=== PATIENT | female | born 1960 | race Caucasian/White ===

== ENCOUNTER 2024-09-10 09:47 | Outpatient (AMB) | payer BC, SELFPAY ==
--- NOTE | 2024-09-10 10:27 | MHC.PC.OV ---
Vital Signs 09/10/24 10:42 Height 5 ft 2 in Weight 169 lb 4 oz BMI 31.0 BP 130/70 Blood Pressure Location Rt brachial Position Sitting Respiration 14 Pulse 72 Pulse Source Pulse Oximeter Temp 98.0 F Temp Source Oral Pulse Oximetry (%) 97 Oxygen Delivery Method Room Air Intake Visit Reasons: Annual PE Allergies amoxicillin Allergy (Severe, Verified 09/10/24 10:42) Anaphylaxis tramadol Allergy (Severe, Verified 09/10/24 10:42) Nausea and Vomiting Fish Containing Products Allergy (Intermediate, Verified 09/10/24 10:42) Hives Medication List - Last Reconciled 09/10/24 by Sherif Nunez MD ascorbate calcium (vitamin C) 500 mg PO DAILY atorvastatin 20 mg PO DAILY coenzyme [id number] E 100-100 mg-unit caps PO thiamine HCl (vitamin B1) 100 mg PO DAILY ursodiol 300 mg PO BID HPI Annual PE HPI Details New?patient Prior?PCP: Thea Kraft Last?office?visit/CPE: Acute?issue(s): Establish PMHx: Stenoses of cervical & Lumbar Spine stenoses. HLD SurgHx: Excision of Ovary on L. L Breast Bx - Neg. Fusion L4-L5. FHx: Mom: Dementia. Dad: Aneursym. GM: Spinal CA. GF: Dementia SocHx: VApes. EtOH: 2 wine daily. No Drugs PFSH Medical History Low back pain potentially associated with spinal stenosis Sinusitis Family History Father Aneurysm Maternal Grandmother Spinal cord cancer Mother Dementia Questionnaire PHQ-9 Over the last 2 weeks, how often have you been bothered by any of the following problems? 1. Little interest or pleasure in doing things: not at all 2. Feeling down, depressed, or hopeless: not at all 3. Trouble falling or staying asleep, or sleeping too much: not at all 4. Feeling tired or having little energy: not at all 5. Poor appetite or overeating: not at all 6. Feeling bad about yourself - or that you are a failure or have let yourself or your family down: not at all 7. Trouble concentrating on things, such as reading the newspaper or watching television: not at all 8. Moving or speaking so slowly that other people could have noticed. Or the opposite - being so fidgety or restless that you have been moving around a lot more than usual: not at all 9. Thoughts that you would be better off or of hurting yourself in some way: not at all Total score: 0 Depression Screening Interpretation: Negative Depression Screening Done: Yes 88331 - PHQ-9 Billing: Yes Source: Developed by Drs. Alvaro Tolentino, Damari Nicole, Billy Burger and colleagues, with an educational anisa from [employer]. Thrive Questionnaire Date Thrive assessed: 09/10/24 I am a: Patient What is your living situation today?: I have a steady place to live Within the past 12 months, did the food you bought not last and you didn't have the money to get more?: Never true Within the past 12 months, did you worry whether your food would run out before you got money to buy more?: Never true Do you have trouble paying for medicines?: No Do you have trouble getting transportation to medical appointments?: No Do you have trouble paying your heating and electricity bill?: No Do you have trouble taking care of your child, family member or friend?: No Do you have trouble with day-to-day activities such as bathing, preparing meals, shopping, managing finances, etc.?: No Are you currently unemployed and looking for a job?: No Are you interested in more education?: No Please select the resources that you would like help with: None Currently or been in a relationship where the following occur: No concerns reported THRIVE Score: 0 AUDIT C Alcohol Use Questionnaire (AUDIT-C) 1. How often do you have a drink containing alcohol?: 4 or more times a week 2. How many drinks containing alcohol do you have on a typical day when you are drinking?: 1 or 2 3. How often do you have six or more drinks on one occasion?: Monthly Total Score: 6 Score Reviewed/Action Taken: Yes LAKIA-7 AMB Questionnaire LAKIA-7 Date LAKIA - 7 assessed: 09/10/24 Feeling nervous, anxious, or on edge: 0 = Not at all Not being able to stop or control worryin = Not at all Worrying too much about different things: 0 = Not at all Trouble relaxin = Not at all Being so restless that it is hard to sit still: 0 = Not at all Becoming easily annoyed or irritable: 0 = Not at all Feeling afraid as if something awful might happen: 0 = Not at all Total LAKIA-7 score (0-4 normal; 5-9 mild; 10-14 moderate; 15-21 severe): 0 Source: Developed by Drs. Alvaro Tolentino, Damari Nicole, Billy Burger and colleagues, with an educational anisa from [employer]. LAKIA-7 Assessment Billing LAKIA-7 Assessment Tool: LAKIA-7 Assessment 55662 Review of Systems Const Denies chills, Denies fatigue, Denies fever(s), Denies headache(s) and Denies weakness ENT Denies dizziness and Denies headache(s) Card Denies chest pain, Denies lightheadedness, Denies dyspnea and Denies other (Palpitations) Resp Denies cough, Denies dyspnea, Denies wheezing and Denies other ( shortness of breath) Musc Denies numbness and Denies tingling Neuro Denies dizziness, Denies headache(s), Denies numbness, Denies tingling, Denies paresthesias and Denies weakness Psych Denies anxiety and Denies depression Endo Denies fatigue Aller/Immun Denies wheezing Physical exam (Primary Care) Vital Signs: Last Vital Signs Temp 98.0 F 09/10/24 10:42 Pulse 72 09/10/24 10:42 Resp 14 09/10/24 10:42 BP 130/70 09/10/24 10:42 Pulse Ox 97 09/10/24 10:42 Oxygen Delivery Method Room Air 09/10/24 10:42 BMI result Body Mass Index 31.0 PHQ-9: PHQ-9 Score PHQ-9: Total score 0 09/10/24 10:46 Depression Screening Interpretation: Negative Thrive Assessment: Date of Thrive Assessment Date Thrive assessed 09/10/24 09/10/24 10:46 Currently or been in a relationship where the following occur: No concerns reported Const General: no acute distress and well developed Nutritional Appearance: well nourished Orientation/consciousness: patient oriented x3 HENMT Head: Yes normocephalic and Yes atraumatic Eyes General: appearance normal, both eyes and all related structures Pupils: Equal, round and reactive pupils present EOM: EOMs intact bilaterally Resp Effort & Inspection: normal respiratory effort Auscultation: clear to auscultation bilaterally Cardio Rate: regular rate Rhythm: regular rhythm Heart sounds: S1 normal heart sound present, S2 normal heart sound present, no gallops, no murmurs and no rubs Neuro General: patient oriented x3 and gait normal Cranial nerves: Yes Equal, round and reactive pupils present Psych Affect: normal affect Coding Level of Care Code New Pt Level 3 (28812) Diagnoses Cervical stenosis of spine M48.02 Lumbar stenosis M48.061 Hyperlipidemia E78.5 Laboratory tests ordered as part of a complete physical exam (CPE) Z00.00 Additional Codes LAKIA-7 Assessment Billing - LAKIA-7 Assessment Tool: LAKIA-7 Assessment 67920 ([id number]) PHQ-9 - 08903 - PHQ-9 Billing: Yes ([id number]) Assessment & Plan Assessment & Plan (1) Cervical stenosis of spine: Code(s): M48.02 - Spinal stenosis, cervical region Category: Medical Plan: Patient?manages?symptoms?of?some?upper?extremity?paresthesias?with?stretches?and?exercises. Will?continue?to?monitor If?mild?changes,?could?start?physical?therapy If?worsening,?would?refer?her?for?consideration?of?injection?therapy?or?surgery (2) Lumbar stenosis: Code(s): M48.061 - Spinal stenosis, lumbar region without neurogenic claudication Category: Medical Plan: S/p?fusion?at?L4-L5 Stable (3) Hyperlipidemia: Code(s): E78.5 - Hyperlipidemia, unspecified Category: Medical Plan: Hyperlipidemia?and?she?is?taking?atorvastatin?and?ursodiol Check?labs (4) Laboratory tests ordered as part of a complete physical exam (CPE): Code(s): Z00.00 - Encounter for general adult medical examination without abnormal findings Category: Medical Plan: Check?labs Orders: Orders Complete Blood Count Auto Diff Today Z00.00 - Encounter for general adult medical examination without abnormal findings TSH reflex Free T4 Today Z00.00 - Encounter for general adult medical examination without abnormal findings Comprehensive [place]. Panel Fast Today Z00.00 - Encounter for general adult medical examination without abnormal findings Lipid Panel Today Z00.00 - Encounter for general adult medical examination without abnormal findings Microalbumin, Random (w Creat) Today I10 - Essential (primary) hypertension UA CC w/rflx Micro + Cult Today Z00.00 - Encounter for general adult medical examination without abnormal findings
[2024-09-10 10:42] VITALS: BP 130/70; PULSE 72; RESP 14; TEMP 36.7; O2SAT 97; BMI 31.0
== END 2024-09-10 11:22 | disposition home or self-care (01) ==
LOC: HO.HMCFM 09:48
PROVIDERS: PCP Family Medicine; Visit Provider Family Medicine
DX: M48.02 Spinal stenosis, cervical region (principal); M48.061 Spinal stenosis, lumbar region without neurogenic claudication; E78.5 Hyperlipidemia, unspecified; Z00.00 Encounter for general adult medical examination without abnormal findings

== ENCOUNTER → 2024-09-10 09:47 | Outpatient (BNVA) | payer BC, SELFPAY | PROVIDERS: PCP Family Medicine; Visit Provider Family Medicine | DX: Z00.00 Encounter for general adult medical examination without abnormal findings (principal); M48.02 Spinal stenosis, cervical region; M48.061 Spinal stenosis, lumbar region without neurogenic claudication; E78.5 Hyperlipidemia, unspecified; I10 Essential (primary) hypertension | CPT/HCPCS: 96127 ==

== ENCOUNTER 2024-10-28 09:30 | Outpatient (REF) | payer BC, SELFPAY ==
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
[2024-10-28 11:22] LABS: MANUAL DIFF FLAG NO
[2024-10-28 11:25] LABS: Appearance Urine Clear; Glucose Urine UA Negative (Negative); PH 5.0 (5.0-9.0); Specific Gravity - Urine 1.010 (1.005-1.025); UMIC TRIGGER UACC YES
[2024-10-28 11:37] LABS: Hematocrit 43.0 % (37.0-47.0); Hemoglobin 14.1 g/dl (12.0-16.0); Imm Gran Abs Auto 0.03 X10*3/uL (0.00-0.03); Imm Gran Pct Auto 0.5 % (0.0-0.4); Lymphocytes Absolute Auto 1.8 X10*3/uL (1.2-4.9); Mean Corpuscular HGB Conc 32.8 g/dl (31.0-35.0); Mean Corpuscular Hemoglobin 30.5 pg (27.0-33.0); Mean Corpuscular Volume 93.1 fL (80.0-98.0); NRBC Abs Auto 0.000 X10*3/uL (0.0-0.012); NRBC Pct Auto 0.0 /100WBC (0.0-0.2); Platelet Count 250 X10*3/uL (160-400); Red Blood Count 4.62 X10*6/uL (4.20-5.50); White Blood Count 5.7 X10*3/uL (4.8-10.8)
[2024-10-28 12:01] LABS: Alanine Aminotransferase 39 U/L (0-31); Albumin Level 4.4 g/dL (3.5-5.0); Alkaline Phosphatase 96 U/L (39-117); Anion Gap 12 (12-20); Aspartate Amino Transferase 31 U/L (5-31); Blood Urea Nitrogen 13 mg/dL (9-16); Calcium 8.8 mg/dL (8.4-10.2); Carbon Dioxide 26 mmol/L (22-29); Chloride 109 mmol/L (96-108); Cholesterol 163 mg/dL (<200); Estimated Glomerular Filt Rate > 60; HDL Cholesterol 64 mg/dL (>40); Potassium 4.5 mmol/L (3.3-5.1); Sodium 142 mmol/L (135-145); Total Protein 6.7 g/dL (6.5-8.0); Triglycerides 76 mg/dL (<150)
== END 2024-10-28 09:31 | disposition home or self-care (01) ==
LOC: HO.WFDLDS 09:30
PROVIDERS: Visit Provider Family Medicine
DX: Z00.00 Encounter for general adult medical examination without abnormal findings (principal); I10 Essential (primary) hypertension
CPT/HCPCS: 36415; 80053; 80061; 81001; 82043; 82570; 84443; 85025

== ENCOUNTER 2025-01-07 13:49 | Outpatient (AMB) | payer BC, SELFPAY ==
--- NOTE | 2025-01-07 13:56 | MHC.PC.OV ---
Vital Signs 01/07/25 14:06 Height 5 ft 2 in Weight 172 lb 8 oz BMI 31.5 BP 138/73 Blood Pressure Location Rt brachial Position Sitting Respiration 16 Pulse 81 Pulse Source Pulse Oximeter Temp 98.0 F Temp Source Oral Pulse Oximetry (%) 98 Oxygen Delivery Method Room Air Intake Visit Reasons: CPE?with?follow-up?labs?and?health?maintenance Intake Note: patient here for CPE with follow up labs and health maintnance Appeals Officer Required: No Is last menstrual period known: No Post menopausal: No Patient : No Allergies amoxicillin Allergy (Severe, Verified 01/07/25 14:01) Anaphylaxis tramadol Allergy (Severe, Verified 01/07/25 14:01) Nausea and Vomiting Fish Containing Products Allergy (Intermediate, Verified 01/07/25 14:01) Hives Medication List - Last Reconciled 01/07/25 by Sherif Nunez MD atorvastatin 20 mg PO DAILY thiamine HCl (vitamin B1) 100 mg PO DAILY Tobacco use date assessed: 01/07/25 Fall risk assessment: No Falls in past year Last assessed Fall Risk: 01/07/25 Dental Screening Dental Screen Date: 01/07/25 Did you have a dental visit in the last 12 months?: No Did you have a dental problem in the last 6 months where you did not have access to dental care?: No Was dental information given to patient?: Patient has dentist HPI CPE?with?follow-up?labs?and?health?maintenance HPI Details 64 y/o female presents for a CPE with f/u labs and health maintenance. Labs drawn 10/28/24. Reviewed labs with pt. Fasting glucose 103. Elevated ALT of 39. Triglycerides 76. TC 163. LDL 84. HDL 64. She is on artovastatin mg daily. HPI Comments History of Present Illness Details Documentation assistance for Sherif Nunez MD, was provided by Franki Orozco,? Semi Conductor Assembler on 01/07/2025 at 2:19 PM EST. I, Dr. Nunez, have read, observed, and verified documentation. [facility] Medical History Low back pain potentially associated with spinal stenosis Sinusitis Family History Father Aneurysm Maternal Grandmother Spinal cord cancer Mother Dementia Social History Housing: House Patient Tobacco Use Status: Never used Tobacco e-Cigarette/Vaping Use: Currently Using Second Hand Smoke Exposure: No service: No Current occupational status: employed Current occupation: school district Current occupational exposures/hazards: No Cognitive needs: No Hearing needs: No Vision needs: Yes Questionnaire PHQ-9 Over the last 2 weeks, how often have you been bothered by any of the following problems? 1. Little interest or pleasure in doing things: not at all 2. Feeling down, depressed, or hopeless: not at all 3. Trouble falling or staying asleep, or sleeping too much: not at all 4. Feeling tired or having little energy: not at all 5. Poor appetite or overeating: not at all 6. Feeling bad about yourself - or that you are a failure or have let yourself or your family down: not at all 7. Trouble concentrating on things, such as reading the newspaper or watching television: not at all 8. Moving or speaking so slowly that other people could have noticed. Or the opposite - being so fidgety or restless that you have been moving around a lot more than usual: not at all 9. Thoughts that you would be better off or of hurting yourself in some way: not at all Total score: 0 Depression Screening Interpretation: Negative Depression Screening Done: Yes 56565 - PHQ-9 Billing: Yes Source: Developed by Drs. Alvaro Tolentino, Damari Nicole, Billy Burger and colleagues, with an educational anisa from [employer]. Thrive Questionnaire Date Thrive assessed: 01/07/25 I am a: Patient What is your living situation today?: I have a steady place to live Within the past 12 months, did the food you bought not last and you didn't have the money to get more?: Never true Within the past 12 months, did you worry whether your food would run out before you got money to buy more?: Never true Do you have trouble paying for medicines?: No Do you have trouble getting transportation to medical appointments?: No Do you have trouble paying your heating and electricity bill?: No Do you have trouble taking care of your child, family member or friend?: No Do you have trouble with day-to-day activities such as bathing, preparing meals, shopping, managing finances, etc.?: No Are you currently unemployed and looking for a job?: No Are you interested in more education?: No Please select the resources that you would like help with: None Currently or been in a relationship where the following occur: No concerns reported THRIVE Score: 0 AUDIT C Alcohol Use Questionnaire (AUDIT-C) 1. How often do you have a drink containing alcohol?: 4 or more times a week 2. How many drinks containing alcohol do you have on a typical day when you are drinking?: 1 or 2 3. How often do you have six or more drinks on one occasion?: Monthly Total Score: 6 Score Reviewed/Action Taken: Yes LAKIA-7 AMB Questionnaire LAKIA-7 Date LAKIA - 7 assessed: 01/07/25 Feeling nervous, anxious, or on edge: 0 = Not at all Not being able to stop or control worryin = Not at all Worrying too much about different things: 0 = Not at all Trouble relaxin = Not at all Being so restless that it is hard to sit still: 0 = Not at all Becoming easily annoyed or irritable: 0 = Not at all Feeling afraid as if something awful might happen: 0 = Not at all Total LAKIA-7 score (0-4 normal; 5-9 mild; 10-14 moderate; 15-21 severe): 0 Source: Developed by Drs. Alvaro Tolentino, Damari Nicole, Billy Burger and colleagues, with an educational ainsa from [employer]. LAKIA-7 Assessment Billing LAKIA-7 Assessment Tool: LAKIA-7 Assessment 57346 Review of Systems Const Denies chills, Denies fatigue, Denies fever(s), Denies headache(s) and Denies weakness Eyes Denies change in vision ENT Denies dizziness, Denies headache(s), Denies hearing loss, Denies nasal congestion, Denies sinus pain, Denies sinus pressure and Denies sore throat Card Denies chest pain, Denies lightheadedness, Denies dyspnea and Denies other (palpitations) Resp Denies cough, Denies dyspnea and Denies wheezing GI Denies abdominal pain, Denies melena, Denies hematochezia, Denies change in bowel habits, Denies dyspepsia and Denies nausea Denies hematuria and Denies dysuria Musc Denies abnormal gait, Denies myalgias, Denies arthralgias, Denies numbness and Denies tingling Skin/Breast Denies rash, Denies unusual bruising and Denies wounds Neuro Denies abnormal gait, Denies dizziness, Denies headache(s), Denies memory loss, Denies numbness, Denies Sensory deficit (Neuro), Denies tingling and Denies weakness Psych Denies anxiety, Denies depression and Denies memory loss Endo Denies cold intolerance, Denies fatigue, Denies heat intolerance, Denies polydipsia and Denies polyuria Steven/Lymph Denies easy bleeding and Denies easy bruising Aller/Immun Denies wheezing Physical exam (Primary Care) Vital Signs: Last Vital Signs Temp 98.0 F 01/07/25 14:06 Pulse 81 01/07/25 14:06 Resp 16 01/07/25 14:06 BP 138/73 01/07/25 14:06 Pulse Ox 98 01/07/25 14:06 Oxygen Delivery Method Room Air 01/07/25 14:06 BMI result Body Mass Index 31.5 Tobacco/Smoking Status: Tobacco use Status Tobacco use date assessed 01/07/25 01/07/25 14:05 Patient Tobacco Use Status Never used Tobacco 01/07/25 14:05 e-Cigarette/Vaping Use Currently Using 01/07/25 14:05 PHQ-9: PHQ-9 Score PHQ-9: Total score 0 01/07/25 14:10 Depression Screening Interpretation: Negative Thrive Assessment: Date of Thrive Assessment Date Thrive assessed 09/10/24 01/07/25 14:01 Currently or been in a relationship where the following occur: No concerns reported Const General: no acute distress, well developed, alert and awake Nutritional Appearance: well nourished Orientation/consciousness: patient oriented x3 HENMT Head: Yes normocephalic and Yes atraumatic Ears: hearing grossly normal bilaterally and TM's normal bilaterally General nose exam: Normal external nose present and Normal nares present Mouth: Normal oral and palatal mucosa present and moist mucous membranes Teeth and gingiva: dentition normal Throat: Yes posterior oropharynx normal Eyes General: appearance normal, both eyes and all related structures Pupils: Equal, round and reactive pupils present and Pupil accommodation reflex normal EOM: EOMs intact bilaterally Neck Neck: Yes normal visual inspection, Yes no lymphadenopathy and Yes trachea midline Thyroid: Thyroid normal Carotids: no bruits Lymphatic: no lymphadenopathy noted Chest Chest palpation & inspection: normal inspection of the chest Resp Effort & Inspection: normal respiratory effort Auscultation: clear to auscultation bilaterally Cardio Rate: regular rate Rhythm: regular rhythm Heart sounds: S1 normal heart sound present, S2 normal heart sound present, no gallops, no murmurs and no rubs Bruits: no abdominal aortic bruits and no carotid bruits GI Palpation (GI): No Abdominal aortic bruit present, Soft to palpation, nontender, No hepatosplenomegaly present and No Rebound tenderness present Auscultation: normal bowel sounds General: Yes no CVA tenderness Back/Spine/Pelvis Back: no CVA tenderness Cervical Spine: cervical ROM normal and No Cervical spine tenderness Thoracic/Lumbar Spine: thoraco-lumbar ROM normal, No pain with thoraco-lumbar ROM, No thoracic spinal tenderness and No lumbar spinal tenderness Skin Lesions: no lesions Rashes: no rashes Trauma: no lacerations or abrasions Wounds: no wounds Nails: normal Neuro General: patient oriented x3 Cranial nerves: Yes Equal, round and reactive pupils present Cognition (Neuro): normal cognition Gait exam (Neuro): Normal gait present Motor exam (neuro): 5/5 motor strength present throughout Sensory Exam: No Sensory deficit (Neuro) Deep tendon reflexes (DTR's): Right patellar reflex intensity grade: 2+ and Left patellar reflex intensity grade: 2+ Extrem General: Yes normal to inspection and No edema Psych Appearance: grossly normal Affect: normal affect Attitude: cooperative Thought process: Normal thought process present Coding Level of Care Code Est Pt Level 3 (25658) Est Pt Prev Care >65y(98239) Diagnoses Adult general medical exam Z00.00 Hyperlipidemia E78.5 Elevated fasting glucose R73.01 Screening for cervical cancer Z12.4 Breast cancer screening by mammogram Z12.31 Elevated ALT measurement R74.01 Screening for colon cancer Z12.11 Screening for osteoporosis Z13.820 Immunization counseling Z71.85 Additional Codes LAKIA-7 Assessment Billing - LAKIA-7 Assessment Tool: LAKIA-7 Assessment 85055 ([id number]) PHQ-9 - 92666 - PHQ-9 Billing: Yes ([id number]) Assessment & Plan Assessment & Plan (1) Adult general medical exam: Code(s): Z00.00 - Encounter for general adult medical examination without abnormal findings Category: Medical Plan: 64-year-old female presents for complete physical exam Encouraged healthy diet with active lifestyle and plenty of exercise (2) Hyperlipidemia: Code(s): E78.5 - Hyperlipidemia, unspecified Category: Medical Plan: She is on atorvastatin and lipids are well controlled. Continue current medication (3) Elevated fasting glucose: Code(s): R73.01 - Impaired fasting glucose Category: Medical Plan: Mildly elevated fasting blood sugar Will recheck this prior to her next visit (4) Screening for cervical cancer: Code(s): Z12.4 - Encounter for screening for malignant neoplasm of cervix Category: Medical Plan: Patient has had at least 3 negative pap smears in the last 10 years with no intervening abnormal Paps She is in a long-term stable and monogamous relationship with her Greater than 65 years old now No longer needs Pap smears (5) Breast cancer screening by mammogram: Code(s): Z12.31 - Encounter for screening mammogram for malignant neoplasm of breast Category: Medical Plan: Patient gets mammograms every other year Mammogram last year was negative for malignancy Up-to-date (6) Elevated ALT measurement: Code(s): R74.01 - Elevation of levels of liver transaminase levels Category: Medical Plan: Mild ALT elevation Encouraged lifestyle changes and good hydration Will recheck this prior to next visit (7) Screening for colon cancer: Code(s): Z12.11 - Encounter for screening for malignant neoplasm of colon Category: Medical Plan: Cologuard test in 2022 Will repeat next year (8) Screening for osteoporosis: Code(s): Z13.820 - Encounter for screening for osteoporosis Category: Medical (9) Immunization counseling: Code(s): Z71.85 - Encounter for immunization safety counseling Category: Medical Plan Due for bone density testing Ordered Orders: Orders XR DEXA axial skeleton Today M81.0 - Age-related osteoporosis without current pathological fracture
[2025-01-07 14:06] VITALS: BP 138/73; PULSE 81; RESP 16; TEMP 36.7; O2SAT 98; BMI 31.5
--- OUTSIDE RECORDS SUMMARY | 2025-01-07 15:06 | XMS_ITS ---
Author Name [facility] Organization Unknown Care Team Organization Name Specialty Phone Email Start Date End Da te [facility] ELIEZER LION Primary Care 06/14/2022 11/26/2023 [facility] Termed, PROVIDER Primary Care 02/14/202211/07
--- OUTSIDE RECORDS SUMMARY | 2025-01-07 15:06 | XMS_ITS | Clinical Summary ---
Author Organization [employer] Address [address] [place] [address] Care Team Providers Care Housetrailer Servicer Name Role Phone Sherif Nunez Primary Care Provider [phone] Allergies Active Allergy Reactions Criticality Noted Date [...] 02/20/2024 10:55 AM EST Plan of Treatment Upcoming Encounters Date Type Department Care Team (Late st Contact Info) Description 01/08/2025 12:00 PM EDT Immunization [place] [facility] [address] [place] [address] Radha Onofre, BARREL WASHER [address] [place] [address] Health Maintenance Due Date Last Done Comments CT Colonography 1958 Colonoscopy 1958 Colorectal Cancer Screening 1958 Depression Screening 1958 FIT DNA/Cologuard 1958 FIT 1958 FOBT 1958 Sigmoidoscopy 1958 Alcohol/Substance Use Screening 1970 Mammogram 1998 Pneumococcal Vaccine: 50+ Years (1 of 1 - PCV) 2008 Zoster Vaccines (1 of 2) 2008 DTaP/Tdap/Td Vaccines (2 - Td or Tdap) 10/13/2019 10/12/2009, 01/14/2007 COVID-19 Vaccine ( season) 2024 02/23/2023, 02/13/2022, 03/30/2021, Additional history exists Influenza [...] Results * Hepatitis C Virus (HCV) Antibody [place] to Quantitative PCR and Genotyping (09/21/2023 1:19 PM EDT) HCV Ab Non Reactive Non Reactive [facility] 1 09/21/2023 1:19 PM EDT 09/21/2023 Narrative [facility] 1 - 09/22/2023 10:05 AM EDT Performed at: 01 - [facility], [address], [place], [place] [id number] Internet Merchant: King Barragan MD, Phone: [phone] us Radha Onofre BARREL W[employer]ER LAB BLOOD ORDERABLES Final Re sult [facility] [...] 10:05 AM EDT Performed at: 01 - [facility] [address], [address], [place], [place] [id number] Internet Merchant: King Barragan MD, Phone: [phone] us Radhayves Onofre BARREL W[employer] LAB BLOOD ORDERABLES Final Re sult [facility] 1 from Last 3 Months or Most Recently Relevant to Health Maintenance Insurance [id number] HMO Care Teams Housetrailer Servicer Relationship Specialty Start Date End Date Sherif Nunez [address] [place], [place] [id number] PCP - General 02/20/24
== END 2025-01-07 14:38 | disposition home or self-care (01) ==
LOC: HO.HMCFM 13:50
PROVIDERS: PCP Family Medicine; Visit Provider Family Medicine
DX: Z00.00 Encounter for general adult medical examination without abnormal findings (principal); E78.5 Hyperlipidemia, unspecified; R73.01 Impaired fasting glucose; Z12.31 Encounter for screening mammogram for malignant neoplasm of breast; R74.01 Elevation of levels of liver transaminase levels; Z12.11 Encounter for screening for malignant neoplasm of colon; Z13.820 Encounter for screening for osteoporosis; Z71.85 Encounter for immunization safety counseling

== ENCOUNTER → 2025-01-07 13:49 | Outpatient (BNVA) | payer BC, SELFPAY | PROVIDERS: PCP Family Medicine; Visit Provider Family Medicine | DX: Z00.00 Encounter for general adult medical examination without abnormal findings (principal); E78.5 Hyperlipidemia, unspecified; R73.01 Impaired fasting glucose; R74.01 Elevation of levels of liver transaminase levels; M81.0 Age-related osteoporosis without current pathological fracture; Z71.85 Encounter for immunization safety counseling | CPT/HCPCS: 96127 ==

== ENCOUNTER 2025-03-02 14:59 | Outpatient (AMB) | payer BC, SELFPAY ==
--- NOTE | 2025-03-02 15:17 | MHC.PC.OV ---
Vital Signs 03/02/25 15:18 Height 5 ft 2 in Weight 174 lb BMI 31.8 BP 132/60 Blood Pressure Location Rt brachial Position Sitting Pulse 92 Pulse Source Pulse Oximeter Temp 97.4 F Temp Source Temporal Artery Scan Pulse Oximetry (%) 93 Oxygen Delivery Method Room Air Intake Visit Reasons: hearing loss Allergies amoxicillin Allergy (Severe, Verified 03/02/25 15:19) Anaphylaxis tramadol Allergy (Severe, Verified 03/02/25 15:19) Nausea and Vomiting Fish Containing Products Allergy (Intermediate, Verified 03/02/25 15:19) Hives Medication List - Last Reconciled 03/02/25 by Sherif Nunez MD atorvastatin 20 mg PO DAILY 90 days Tobacco use date assessed: 03/02/25 Fall risk assessment: No Falls in past year Last assessed Fall Risk: 03/02/25 Dental Screening Dental Screen Date: 03/02/25 Did you have a dental visit in the last 12 months?: Yes Did you have a dental problem in the last 6 months where you did not have access to dental care?: No Was dental information given to patient?: Patient has dentist HPI hearing loss HPI Details 64 y/o female presents today with complaints of hearing loss. Notes hearing changes/loss, R slightly worse than L. Bone density test scheduled in March. [facility] Medical History Low back pain potentially associated with spinal stenosis Sinusitis Family History Father Aneurysm Maternal Grandmother Spinal cord cancer Mother Dementia Social History Housing: House Patient Tobacco Use Status: Never used Tobacco e-Cigarette/Vaping Use: Currently Using Second Hand Smoke Exposure: No service: No Current occupational status: employed Current occupation: school district Current occupational exposures/hazards: No Cognitive needs: No Hearing needs: No Vision needs: Yes Questionnaire PHQ-9 Over the last 2 weeks, how often have you been bothered by any of the following problems? 1. Little interest or pleasure in doing things: not at all 2. Feeling down, depressed, or hopeless: not at all 3. Trouble falling or staying asleep, or sleeping too much: not at all 4. Feeling tired or having little energy: not at all 5. Poor appetite or overeating: not at all 6. Feeling bad about yourself - or that you are a failure or have let yourself or your family down: not at all 7. Trouble concentrating on things, such as reading the newspaper or watching television: not at all 8. Moving or speaking so slowly that other people could have noticed. Or the opposite - being so fidgety or restless that you have been moving around a lot more than usual: not at all 9. Thoughts that you would be better off or of hurting yourself in some way: not at all Total score: 0 Depression Screening Interpretation: Negative Depression Screening Done: Yes Source: Developed by Drs. Alvaro Tolentino, Damari Nicole, Billy Burger and colleagues, with an educational anisa from [employer]. Thrive Questionnaire Date Thrive assessed: 09/10/24 I am a: Patient What is your living situation today?: I have a steady place to live Within the past 12 months, did the food you bought not last and you didn't have the money to get more?: Never true Within the past 12 months, did you worry whether your food would run out before you got money to buy more?: Never true Do you have trouble paying for medicines?: No Do you have trouble getting transportation to medical appointments?: No Do you have trouble paying your heating and electricity bill?: No Do you have trouble taking care of your child, family member or friend?: No Do you have trouble with day-to-day activities such as bathing, preparing meals, shopping, managing finances, etc.?: No Are you currently unemployed and looking for a job?: No Are you interested in more education?: No Please select the resources that you would like help with: None Currently or been in a relationship where the following occur: No concerns reported THRIVE Score: 0 AUDIT C Alcohol Use Questionnaire (AUDIT-C) 1. How often do you have a drink containing alcohol?: 4 or more times a week 2. How many drinks containing alcohol do you have on a typical day when you are drinking?: 1 or 2 3. How often do you have six or more drinks on one occasion?: Never Total Score: 4 LAKIA-7 AMB Questionnaire LAKIA-7 Date LAKIA - 7 assessed: 01/07/25 Feeling nervous, anxious, or on edge: 0 = Not at all Not being able to stop or control worryin = Not at all Worrying too much about different things: 0 = Not at all Trouble relaxin = Not at all Being so restless that it is hard to sit still: 0 = Not at all Becoming easily annoyed or irritable: 0 = Not at all Feeling afraid as if something awful might happen: 0 = Not at all Total LAKIA-7 score (0-4 normal; 5-9 mild; 10-14 moderate; 15-21 severe): 0 Source: Developed by Drs. Alvaro Tolentino, Damari Nicole, Billy Burger and colleagues, with an educational anisa from [employer]. Review of Systems Const Denies chills, Denies fatigue, Denies fever(s), Denies headache(s) and Denies weakness ENT Denies dizziness and Denies headache(s) Card Denies dyspnea Resp Denies cough, Denies dyspnea, Denies wheezing and Denies other (shortness of breath) Musc Denies numbness and Denies tingling Neuro Denies dizziness, Denies headache(s), Denies numbness, Denies tingling and Denies weakness Psych Denies anxiety and Denies depression Endo Denies fatigue Aller/Immun Denies wheezing Physical exam (Primary Care) Vital Signs: Last Vital Signs Temp 97.4 F 03/02/25 15:18 Pulse 92 03/02/25 15:18 BP 132/60 03/02/25 15:18 Pulse Ox 93 03/02/25 15:18 Oxygen Delivery Method Room Air 03/02/25 15:18 BMI result Body Mass Index 31.8 Tobacco/Smoking Status: Tobacco use Status Tobacco use date assessed 03/02/25 03/02/25 15:23 Patient Tobacco Use Status Never used Tobacco 03/02/25 15:18 e-Cigarette/Vaping Use Currently Using 03/02/25 15:18 PHQ-9: PHQ-9 Score PHQ-9: Total score 0 03/02/25 15:35 Depression Screening Interpretation: Negative Thrive Assessment: Date of Thrive Assessment Date Thrive assessed 09/10/24 03/02/25 15:18 Currently or been in a relationship where the following occur: No concerns reported Const General: well developed; No acute distress Nutritional Appearance: well nourished Orientation/consciousness: patient oriented x3 HENMT Head: Yes normocephalic and Yes atraumatic Eyes General: appearance normal, both eyes and all related structures Pupils: Equal, round and reactive pupils present EOM: EOMs intact bilaterally Resp Effort & Inspection: normal respiratory effort Neuro General: patient oriented x3 and gait normal Cranial nerves: Yes Equal, round and reactive pupils present Psych Affect: normal affect Coding Level of Care Code Est Pt Level 3 (67698) Diagnoses Hearing loss H91.90 Assessment & Plan Assessment & Plan (1) Hearing loss: Code(s): H91.90 - Unspecified hearing loss, unspecified ear Category: Medical Plan: 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
[2025-03-02 15:18] VITALS: BP 132/60; PULSE 92; TEMP 36.3; O2SAT 93; BMI 31.8
--- OUTSIDE RECORDS SUMMARY | 2025-03-02 19:47 | XMS_ITS | Clinical Summary ---
Author Organization [employer] Address [address] [place] [address] Care Team Providers Care Calender Roll Press Operator Name Role Phone Sherif Nunez Primary Care Provider [phone] Allergies Active Allergy Reactions Criticality Noted Date [...] Active Active Problems No known active problems Encounters Date Type Department Care Team Description 01/08/2025 12:00 PM EDT Immunization [facility] [address] [place] [id number] Radha Onofre CNP Immunization due (Primary Dx) from Last 3 Months Immunizations Immunization Administration Dates Next Due INFLUENZA INJECTABLE QUADRIV ALANT CCIIV4 MDCK Multi-dose vial 01/04/2023 Influenza Injectable Quadriv alant Preservative Free IIV4 MDCK 02/13/2022 Influenza, IIV3, injectable 01/10/2024 Influenza, Injectable, MDCK, w/preservative 06/2023 Influenza, trivalent, adjuvanted 01/08/2025 Will SARS-CoV-2 Vaccination 08/13/2020 PPD Test 02/22/2004 [...] 2024 02/23/2023, 02/13/2022, 03/30/2021, Additional history exists SDOH Screening 02/19/2025 02/20/2024 Tobacco Screening 02/19/2025 02/20/2024 RSV Patients and Patients Aged 60 years or older (1 - 1-dose 75+ series) 2033 Hepatitis B Vaccines Aged Out 09/21/2023 No long er eligible based on patient's age to complete this topic Hepatitis C Screening Completed 09/21/2023, 024 Influenza Vaccine Completed 01/08/2025, , 01/10/2024, Additional history exists HIB Vaccines Aged Out No longer eligi [...] Results * Hepatitis C Virus (HCV) Antibody Rogers to Quantitative PCR and Genotyping (09/21/2023 1:19 PM EDT) HCV Ab Non Reactive Non Reactive [facility] 1 09/21/2023 1:19 PM EDT 09/21/2023 Narrative [facility] 1 - 09/22/2023 10:05 AM EDT Performed at: 01 - [facility] [place] [address], [address], [place], [place] [id number] Mother Superior: King Barragan MD, Phone: [phone] us Radha Onofre S[employer] E[employer] ASSEMBLER LAB BLOOD ORDERABLES Final Re sult [facility] [...] AM EDT Performed at: 01 - [facility] [address], [place] [id number] Mother Superior: King Barragan MD, Phone: [phone] us Radha Onofre S[employer] E[employer] ASSEM[employer]ER LAB BLOOD ORDERABLES Final Re sult [facility] 1 from Last 3 Months or Most Recently Relevant to Health Maintenance Insurance [facility] HMO Care Teams Calender Roll Press Operator Relationship Specialty Start Date End Date Sherif Nunez [address] [place] [address] PCP - General 02/20/24
== END 2025-03-02 15:53 | disposition home or self-care (01) ==
LOC: HO.HMCFM 15:00
PROVIDERS: PCP Family Medicine; Visit Provider Family Medicine
DX: H91.90 Unspecified hearing loss, unspecified ear (principal)

== ENCOUNTER 2025-03-20 10:05 | Outpatient (REF) | payer BC, SELFPAY ==
--- NOTE | ~2025-03-20 | MM_ITS ---
EXAMINATION: DXA BONE DENSITY AXIAL HISTORY: M81.0 - Age-related osteoporosis without current pathological fracture TECHNIQUE: [employer] Dual energy absorptiometry (DEXA) of the lumbar spine, total left hip, and femoral neck was performed. COMPARISON: There are no prior studies for comparison. FINDINGS: The bone mineral density of the lumbar spine is 1.335 g/cm2, corresponding to a T-score of 1.4, and a Z-score of 2.6. This is indicative of normal bone mineral density. The bone mineral density of the left total hip is 1.211 g/cm2, corresponding to a T-score of 1.6, and a Z-score of 2.6. This is indicative of normal bone mineral density. The bone mineral density of the left femoral neck is 1.141 g/cm2, corresponding to a T-score of 0.7, and a Z-score of 2.0. This is indicative of normal bone mineral density. FRACTURE RISK: The FRAX index suggests a risk of major osteoporotic fracture of 10.3%, and of hip fracture 0.5%. MM/XR DEXA axial skeleton IMPRESSION: Based on bone mineral density, and according to World Health Organization (WHO) criteria, the diagnosis is consistent with normal bone mineral density. Statistically, 68% of repeat scans fall within 1 SD (+/- 0.010 g/cm2 for AP spine L1-L4) and 1 SD (+/- 0.012 g/cm2 for femur total) FRAX is a trademark of the [employer] [place] for Metabolic Bone Disease, a World Health Organization (WHO) Collaborating Center. Electronically signed by: Alvaro Loco MD 03/20/2025 10:58 AM [facility]
[2025-03-20 12:21] LABS: Alanine Aminotransferase 32 U/L (0-31); Albumin Level 4.7 g/dL (3.5-5.0); Alkaline Phosphatase 101 U/L (39-117); Anion Gap 9 (12-20); Aspartate Amino Transferase 28 U/L (5-31); Blood Urea Nitrogen 8 mg/dL (9-16); Calcium 9.4 mg/dL (8.4-10.2); Carbon Dioxide 30 mmol/L (22-29); Chloride 108 mmol/L (96-108); Estimated Glomerular Filt Rate > 60; Potassium 4.0 mmol/L (3.3-5.1); Sodium 143 mmol/L (135-145); Total Protein 7.1 g/dL (6.5-8.0)
== END 2025-03-20 10:06 | disposition home or self-care (01) ==
LOC: HO.MAMMO 10:05
PROVIDERS: PCP Family Medicine; Visit Provider Family Medicine
DX: Z00.00 Encounter for general adult medical examination without abnormal findings (principal); M81.0 Age-related osteoporosis without current pathological fracture; R73.01 Impaired fasting glucose
CPT/HCPCS: 36415; 77080; 80053; 83036

== ENCOUNTER → 2025-03-20 10:30 | Outpatient (BNV) | payer BC, SELFPAY | PROVIDERS: PCP Family Medicine; Visit Provider Radiology Diagnostic Radiology | DX: E28.39 Other primary ovarian failure (principal) | CPT/HCPCS: 77080 ==